=== PATIENT | male | born 1990 | race Caucasian/White ===

== ENCOUNTER 2019-01-09 12:37 | Day surgery (SDC) | payer BC ==
[~2019-01-09] VITALS: Ht 180.3 cm; Wt 110.6 kg
[~2019-01-09 12:37] MED LIST: CLON.5 PO; LAMICTAL XR50 MG PO; Prozac20 MG PO
== END 2019-01-09 14:28 | disposition home or self-care (01) ==
LOC: ORSCSDS 12:37
PROVIDERS: Internal Medicine Gastroenterology
PROC: 0DBP8ZX Excision of Rectum, Via Natural or Artificial Opening Endoscopic, Diagnostic (ICD-10-PCS; principal; 2019-01-09 14:00)
DX: R19.7 Diarrhea, unspecified (principal); K62.5 Hemorrhage of anus and rectum; R19.4 Change in bowel habit; K64.8 Other hemorrhoids; Z87.891 Personal history of nicotine dependence
CPT/HCPCS: 88305; J7120

== ENCOUNTER 2025-06-07 06:30 | Day surgery (SDC) | payer BC ==
[2025-06-07] VITALS (9 sets, daily range): BP systolic 110–141; BP diastolic 50–84
[~2025-06-07] VITALS: Ht 182.9 cm; Wt 130.1 kg
[~2025-06-07 06:30] MED LIST changes: +Adderall 20 MG20 MG PO
[2025-06-07] MEDS ORDERED: Ampicillin Sod/Sulbactam Sod 3 GM in NS 100 ML IV SCH (06:35)
--- NOTE | 2025-06-07 07:00 | NUR ---
AMBULATORY INTO SDS. PT DENIES PAIN. HISTORY AND ALLERGIES REVIEWED. VS WDL. LUNGS CLEAR. NPO STATUS CONFIRMED. PT BELONGINGS IN BAG BELOW LIZET. PT VICTORIA IS HIS RIDE HOME TODAY.
[2025-06-07] MEDS ORDERED: Bupivacaine 0.5% W/EPI 1:200000 SDV 30 ML Vial ONE ×2 (07:37→08:40)
[2025-06-07] MEDS ORDERED: HYDROmorphone HCl/Pf 1MG SYR IV PRN ×2 (07:55→08:00)
[2025-06-07] MEDS ORDERED: Ondansetron HCl 2 MG / ML 2ML Vial IV PRN (07:55)
[2025-06-07] MEDS ORDERED: Albuterol 2.5 MG/3 ML VIAL INH PRN (07:55)
[2025-06-07] MEDS ORDERED: FentaNYL Citrate 50 MCG/ML 2 ML Injection IV PRN ×2 (07:55)
[2025-06-07] MEDS ORDERED: Midazolam HCl 1MG / ML 2ML Vial ONE (07:58)
[2025-06-07] MEDS ORDERED: Midazolam HCl 1MG / ML 2ML Vial IV ONE (08:00)
[2025-06-07] MEDS ORDERED: FentaNYL Citrate 50 MCG/ML 2 ML Injection ONE ×2 (08:04→08:17)
[2025-06-07] MEDS ORDERED: Ondansetron HCl 2 MG / ML 2ML Vial ONE (08:16)
[2025-06-07] MEDS ORDERED: Rocuronium Bromide 10 MG/ML 5ML Injection IV ONE (08:16)
[2025-06-07] MEDS ORDERED: Ketorolac Tromethamine 30mg Vial ONE (08:16)
[2025-06-07] MEDS ORDERED: Dexamethasone Sod Phos 10 MG/ML 1ML VIAL ONE (08:16)
--- NOTE | 2025-06-07 08:47 | NUR ---
06/07/25 0847 Liberty Schmidt NOTED RED RASH TO PTS GROIN
[2025-06-07] MEDS ORDERED: Sugammadex Sodium 200 MG/2ML SDV (100 MG/ML) ONE (09:47)
[2025-06-07] MEDS ORDERED: OxyCODONE 5 mg/Acetamin 325 mg TABLET PO PRN (10:10)
--- NOTE | 2025-06-07 11:41 | NUR ---
DISCHARGE NOTE PT A&OX4, BREATHING RA, TOLERATING PO INTAKE. PT MEDICATED FOR PAIN IN STEP, PAIN AT A TOLERABLE LEVEL ONCE DISCHARGED. NO NAUSEA. MOSES DRAIN DRAINING SCANT AMOUNT OF SEROSANGUINOUS DRAINAGE, NONE EMPTIED IN STEP. SCANT AMOUNT OF SS DRAINAGE AT DRAIN INSERTION SITE, DRESSINGS REMAIN INTACT C CHG PATCH. PT SENT HOME C EXTRA TEGADERM TO REINFORCE DRESSING IF NEEDED. EDUCATION ABOUT DRAIN CARE AND DRAIN LOG GIVEN. Patient up to Ambulate independently. Gait steady. Discharge instructions reviewed with patient. Patient verbalizes understanding. Copy given to patient to take home. Discharged via wheelchair to private car for ride home.
== END 2025-06-07 11:40 | disposition home or self-care (01) ==
LOC: ORSCMMR 06:30
PROVIDERS: Surgery
PROC: 0HX8XZZ Transfer Buttock Skin, External Approach (ICD-10-PCS; principal; 2025-06-07 08:00)
DX: L05.01 Pilonidal cyst with abscess (principal); E66.9 Obesity, unspecified; Z68.38 Body mass index [BMI] 38.0-38.9, adult; F41.9 Anxiety disorder, unspecified; Z79.899 Other long term (current) drug therapy
CPT/HCPCS: 88304; A9270; J0295; J1100; J1885; J2250; J2405; J2704; J3010; J7120

== ENCOUNTER 2025-08-22 02:59 | Day surgery (SDC) | payer BC ==
[2025-08-22] MEDS ORDERED: Lidocaine HCl 4% Cream 5 GM ONE (11:07)
== END 2025-08-22 23:00 | disposition home or self-care (01) ==
LOC: WOUND 02:59
DX: T81.31XD Disruption of external operation (surgical) wound, not elsewhere classified, subsequent encounter (principal); Z98.890 Other specified postprocedural states
CPT/HCPCS: A6213; A9270; G0463

== ENCOUNTER 2025-08-29 00:27 | Day surgery (SDC) | payer BC ==
[2025-08-29] MEDS ORDERED: Lidocaine HCl 4% Cream 5 GM ONE (14:40)
== END 2025-08-29 23:00 | disposition home or self-care (01) ==
LOC: WOUND 00:27
DX: T81.31XA Disruption of external operation (surgical) wound, not elsewhere classified, initial encounter (principal); Z98.890 Other specified postprocedural states
CPT/HCPCS: A6213; A9270

== ENCOUNTER 2025-09-06 00:53 | Day surgery (SDC) | payer BC | END 2025-09-06 23:00 | disposition home or self-care (01) | LOC: WOUND 00:53 | DX: T81.31XD Disruption of external operation (surgical) wound, not elsewhere classified, subsequent encounter (principal); Z98.890 Other specified postprocedural states | CPT/HCPCS: A6213; G0463 ==

== ENCOUNTER 2025-09-13 00:32 | Day surgery (SDC) | payer BC | END 2025-09-13 23:00 | disposition home or self-care (01) | LOC: WOUND 00:32 | DX: T81.31XD Disruption of external operation (surgical) wound, not elsewhere classified, subsequent encounter (principal); Z98.890 Other specified postprocedural states | CPT/HCPCS: A6213; G0463 ==

== ENCOUNTER 2025-09-20 02:26 | Day surgery (SDC) | payer BC | END 2025-09-20 23:00 | disposition home or self-care (01) | LOC: WOUND 02:26 | DX: T81.31XD Disruption of external operation (surgical) wound, not elsewhere classified, subsequent encounter (principal); Z98.890 Other specified postprocedural states | CPT/HCPCS: A6213; G0463 ==

== ENCOUNTER 2025-10-11 03:14 | Day surgery (SDC) | payer BC ==
[2025-10-11] MEDS ORDERED: Lidocaine HCl 4% Cream 5 GM ONE (13:41)
== END 2025-10-11 23:00 | disposition home or self-care (01) ==
LOC: WOUND 03:14
DX: T81.31XD Disruption of external operation (surgical) wound, not elsewhere classified, subsequent encounter (principal); Z87.828 Personal history of other (healed) physical injury and trauma
CPT/HCPCS: A9270; G0463